=== PATIENT | female | born 1950 | race Caucasian/White ===

== ENCOUNTER → 2016-06-06 | Day surgery (SDC) | payer MEDICARE, OTHER ==
[~2016-06-06] MED LIST: Lactated Ringers 1,000 ML IV SCH; Lidocaine 4% Top Soln 5 ML LTA Syringe ONE; Lidocaine 4% Top Soln 5 ML LTA Syringe TOP ONE; Propofol 200 MG/20 ML SDV IV ONE
[2016-06-06 11:58] VITALS: BP 139/73
--- NOTE | 2016-06-06 12:52 | OR ---
DATE OF OPERATION: 06/06/2016 PREOPERATIVE DIAGNOSIS: EPIGASTRIC PAIN AND GASTROESOPHAGEAL REFLUX DISEASE. POSTOPERATIVE DIAGNOSIS: LARGE HIATAL HERNIA. SURGEON: Daryl Jacome MD PROCEDURE: ESOPHAGOGASTRODUODENOSCOPY WITH JENNIFER. ANESTHESIA: FLAGSETTER due to severe reflux. COMPLICATIONS: None. SPECIMEN: Antral JENNIFER. FINDINGS: 1. Full-length EGD. 2. Moderate to large hiatal hernia without esophagitis. RECOMMENDATIONS: Surgical followup for possible lap Vaishali. INDICATIONS: The patient has been resistant to reflux medications and having a lot of epigastric pain. Izabella Newman sent her for EGD. DESCRIPTION OF PROCEDURE: The patient was prepped and draped, placed in the left lateral decubitus position. A lubricated Olympus gastroscope was inserted and with ease intubated in the esophagus. Esophageal lining was completely benign in its entire course. The Z-line was crisp and sharp around 36 to 37 cm. There was a moderate-sized hiatal hernia present with spontaneous reflux. No distal esophagitis, stricturing, ulceration, or Anna's changes. The scope was advanced into the stomach through the pylorus into the third portion of duodenum. This and the duodenal bulb were completely benign. The scope was brought back into the stomach and retroflexed. The upper fundus and cardia were unremarkable, other than the hernia itself. The entire gastric lining showed no signs of any polyps, mass, ulceration, or peptic ulcer disease. A CLOtest was obtained. Air was then suctioned. Scope removed without complication. VAZQUEZ/KEV /[id number]
== END ==
LOC: CC.SDS 10:18
PROVIDERS: ATTEND Family Medicine
DX: K44.9 Diaphragmatic hernia without obstruction or gangrene (principal); Z88.0 Allergy status to penicillin; Z79.899 Other long term (current) drug therapy; Z90.49 Acquired absence of other specified parts of digestive tract; Z90.710 Acquired absence of both cervix and uterus; Z98.890 Other specified postprocedural states; Z78.9 Other specified health status; Z87.891 Personal history of nicotine dependence
CPT/HCPCS: 43235; 87081; A9270; J2704; J7120; 00740

== ENCOUNTER 2016-06-27 00:30 | Emergency (ER) | payer MEDICARE, OTHER ==
[2016-06-27 00:35] VITALS: BP 153/95
[2016-06-27] MEDS ORDERED: Alum Hydrox/Mag Hydrox/Simeth 30 ML, Lidocaine 2% 15 ML PO ONE ×2 (01:11)
--- NOTE | 2016-06-27 01:11 | EDM.PDOC ---
ED HPI GI/ABDOMINAL - General Chief Complaint: Abdominal Pain Stated Complaint: abdominal pain, heart "erratic" Time Seen by Provider: 06/27/16 00:55 Source of Information: Reports: Patient History Limitations: Reports: No limitations - History of Present Illness INITIAL COMMENTS - FREE TEXT/NARRATIVE: Has been having abdominal pain for several months and did have EGD recently and was told she has large hiatal hernia. Saw Dr. Denise for it last week and he set her up to have UGI with small bowel follow through next week. States that tonight the pain was worse. No nausea or diarrhea with it. Also noted that she had an irregular heart beat at times. Has a harsh congested cough that she states started several days ago. Very congested nasally with stuffed up nose. Cough has been getting worse all evening and when she coughed would cause an increase in pain. No fever with it. Has been able to eat but has not had appetite. When she does eat it causes increase in pain and pressure. Has been drinking some but that cause discomfort also. Did come here from work. Location: other (midepigastric) Associated Symptoms (-Female): Denies: constipation, diarrhea, fever/chills - Related Data Allergies/ADRs: Allergies Allergy/AdvReac Type Severity Reaction Status Date / Time Penicillins Allergy Rash Verified 06/27/16 00:35 Home Meds: Home Meds Levothyroxine Sodium [Levothyroxine Sodium] 112 mcg PO DAILY 12/01/15 [History] Sertraline [Zoloft] 25 mg PO DAILY 12/01/15 [History] traMADol [Ultram] 50 mg PO Q6H PRN 12/07/15 [History] Cyclobenzaprine HCl 10 mg PO TID PRN 06/04/16 [History] Hydrocodone/Acetaminophen [Hydrocodon-Acetaminophn 10-325] 1 tab PO Q6H PRN [History] predniSONE [Prednisone] 5 mg PO DAILY 06/04/16 [History] Past Medical History HEENT History: Reports: Cataract, Impaired vision Cardiovascular History: Reports: Hypertension Gastrointestinal History: Reports: Diverticulosis, GERD, Hiatal hernia, Other ( see below) Other Gastrointestinal History: abdominal hernia 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 OB/BYN History: 8 pregnancyies 6 children Musculoskeletal History: Reports: Arthritis, Back pain, chronic Neurological History: Reports: Headaches, chronic, Migraines Psychiatric History: Reports: Anxiety, Depression Endocrine/Metabolic History: Reports: Hyperthyroidism, Hypothyroidism - Infectious Disease History Infectious Disease History: Reports: Chicken pox - Past Surgical History HEENT Surgical History: Reports: Adenoidectomy, Tonsillectomy Cardiovascular Surgical History: Reports: None GI Surgical History: Reports: Appendectomy, Cholecystectomy Female Surgical History: Reports: Hysterectomy Endocrine Surgical History: Reports: Thyroidectomy Neurological Surgical History: Reports: None Musculoskeletal Surgical History: Reports: Arthroscopic knee Social & Family History - Family History Psychiatric: Reports: Anxiety, Depression Endocrine/Metabolic: Reports: Diabetes, type II Oncologic: Reports: Lung Other Oncologic Family History: mother - Tobacco Use Smoking Status *Q: Current Every Day Smoker Years of Tobacco use: 20 Packs/Tins Daily: 0.5 Used Tobacco, but Quit: Yes Month Tobacco Last Used: 10/2015 Second Hand Smoke Exposure: Yes - Caffeine Use Caffeine Use: Reports: Coffee - Recreational Drug Use Recreational Drug Use: No ED ROS GENERAL - Review of Systems Review Of Systems: See Below Constitutional: Denies: fever, chills HEENT: Reports: Sinus problem Respiratory: Reports: Cough, Sputum. Denies: Shortness of Breath Cardiovascular: Reports: Palpitations. Denies: Chest pain GI/Abdominal: Reports: Abdominal pain, Decreased appetite. Denies: Constipation , Diarrhea, Vomiting : Reports: no symptoms Musculoskeletal: Reports: no symptoms Skin: Reports: no symptoms Neurological: Reports: No Symptoms ED EXAM, GI/ABD - Physical Exam Exam: See Below Exam Limited By: No limitations General Appearance: alert, moderate distress Ears: normal external exam, normal canal, normal TMs Nose: nasal drainage Throat/Mouth: Normal inspection, Normal oropharynx, Normal voice Head: atraumatic, normocephalic, sinus tenderness Neck: normal inspection, supple Respiratory/Chest: no respiratory distress, lungs clear Cardiovascular: regular rate, rhythm, no edema, no murmur GI/Abdominal: normal bowel sounds, soft, tenderness (to the midepigastric area.) . No: guarding, rigidity Extremities: normal inspection, no pedal edema Neurological: alert, oriented Skin Exam: Warm, Dry EKG INTERPRETATION EKG Date: 06/27/16 Rhythm: NSR Course - Vital Signs Last Recorded V/S: Last Vital Signs Temp 98.5 F 06/27/16 00:33 Pulse 92 06/27/16 00:33 Resp 18 06/27/16 00:33 BP 153/95 H 06/27/16 00:33 Pulse Ox 99 06/27/16 00:33 - Orders/Labs/Meds Orders: Active Orders 24 hr Category Date Time Status BASIC METABOLIC PANEL,BMP [CHEM] Stat Lab 06/27/16 00:43 Ordered CBC WITH AUTO DIFF [HEME] Stat Lab 06/27/16 00:43 Ordered UA W/MICROSCOPIC [URIN] Stat Lab 06/27/16 00:42 Ordered EKG 12 Lead [EK] Routine Ther 06/27/16 00:43 Ordered Departure - Departure Time of Disposition: 01:27 Disposition: Home, Self-Care 01 Condition: good Clinical Impression: Hiatal hernia Sinusitis, acute Qualifiers: Sinusitis location: maxillary Recurrence: non-recurrent Qualified Code(s): J01.00 - Acute maxillary sinusitis, unspecified Instructions: Abdominal Pain, Adult, [id number] Forms: ED Department Discharge Additional Instructions: Push fluids as much as tolerates zithromax- take 2 tabs tonight and then 1 daily for 4 additional days Use the pain meds that you have at home to help with the pain Follow up with Dr. Denise Tylenol or advil as needed for temp or mild discomfort - Problem List & Annotations (1) Abdominal pain SNOMED Code(s): 50920398 Code(s): R10.9 - UNSPECIFIED ABDOMINAL PAIN Status: Acute Priority: High Current Visit: No Qualifiers: Abdominal location: epigastric Qualified Code(s): R10.13 - Epigastric pain (2) Hiatal hernia SNOMED Code(s): 54558922 Code(s): K44.9 - DIAPHRAGMATIC HERNIA WITHOUT OBSTRUCTION OR GANGRENE Status: Acute Priority: High Current Visit: Yes (3) Sinusitis, acute SNOMED Code(s): 37601848 Code(s): J01.90 - ACUTE SINUSITIS, UNSPECIFIED Status: Acute Priority: High Current Visit: Yes Qualifiers: Sinusitis location: maxillary Recurrence: non-recurrent Qualified Code(s) : J01.00 - Acute maxillary sinusitis, unspecified - Problem List Review Problem List Initiated/Reviewed/Updated: Yes - My Orders Last 24 Hours: My Active Orders 06/27/16 00:42 UA W/MICROSCOPIC [URIN] Stat 06/27/16 00:43 BASIC METABOLIC PANEL,BMP [CHEM] Stat CBC WITH AUTO DIFF [HEME] Stat EKG 12 Lead [EK] Routine - Assessment/Plan Last 24 Hours: My Active Orders 06/27/16 00:42 UA W/MICROSCOPIC [URIN] Stat 06/27/16 00:43 BASIC METABOLIC PANEL,BMP [CHEM] Stat CBC WITH AUTO DIFF [HEME] Stat EKG 12 Lead [EK] Routine
[2016-06-27 01:18] LABS: CHLORIDE,CL 102 mEq/L (98-106); SODIUM,NA 140 mEq/L (136-145)
[2016-06-27] MEDS ORDERED: Take Home: Azithromycin 250 MG, 2 Tab Pack PO ONE (01:29)
[2016-06-27] MEDS ORDERED: Azithromycin 250 MG Tab PO ONE (11:39)
== END 2016-06-27 01:40 | disposition home or self-care (01) ==
LOC: CC.ED 00:30
DX: K44.9 Diaphragmatic hernia without obstruction or gangrene (principal); J01.00 Acute maxillary sinusitis, unspecified; I10 Essential (primary) hypertension; K21.9 Gastro-esophageal reflux disease without esophagitis; M19.90 Unspecified osteoarthritis, unspecified site; F41.9 Anxiety disorder, unspecified; F32.9 Major depressive disorder, single episode, unspecified; E05.90 Thyrotoxicosis, unspecified without thyrotoxic crisis or storm; E03.9 Hypothyroidism, unspecified; F17.210 Nicotine dependence, cigarettes, uncomplicated; Z88.0 Allergy status to penicillin; Z79.899 Other long term (current) drug therapy; Z79.52 Long term (current) use of systemic steroids; Z98.890 Other specified postprocedural states; Z90.49 Acquired absence of other specified parts of digestive tract; Z90.710 Acquired absence of both cervix and uterus
CPT/HCPCS: 36415; 80048; 81001; 85025; 93005; 93010; 99284; A9270

== ENCOUNTER 2016-09-02 21:44 | Inpatient (IN) | payer MEDICARE, OTHER ==
[2016-09-02] MEDS ORDERED: Lactated Ringers 1,000 ML IV ONE (21:55)
[2016-09-02] MEDS ORDERED: fentaNYL 100 MCG/2 ML SDV IVPUSH ONE (21:56)
[2016-09-02 22:30] LABS: CHLORIDE,CL 105 mEq/L (98-106); SODIUM,NA 140 mEq/L (136-145)
[2016-09-02] MEDS ORDERED: Non-Formulary Medication 1 Each (Hydrocodone/Acetaminophen [Hydrocodon-Acetaminophn 10-325 PO PRN (23:04)
[2016-09-02] MEDS ORDERED: traMADol 50 MG Tab PO PRN (23:04)
[2016-09-02] MEDS ORDERED: Cyclobenzaprine 10 MG Tab PO PRN (23:04)
[2016-09-02] MEDS ORDERED: fentaNYL 100 MCG/2 ML SDV IVPUSH PRN (23:06)
--- NOTE | 2016-09-02 23:11 | EDM.PDOC ---
ED HPI GENERAL MEDICAL PROBLEM - General Chief Complaint: Abdominal Pain Stated Complaint: "HAVING RIGHT ABDOMINAL PAIN" Time Seen by Provider: 09/02/16 22:39 Source of Information: Reports: Patient History Limitations: Reports: No Limitations - History of Present Illness INITIAL COMMENTS - FREE TEXT/NARRATIVE: Altagracia is a 66 yo female who presents to the ER via family with concerns of severe right lower quadrant abdominal pain. She states the pain started around 1900hrs this evening and hasn't let up. She has been dealing with abdominal pain for the last month or so after having a lap april fundoplication done in [place] by Dr. Denise. She states that pain is different than her typical pain. She states she did have some diarrhea up until a few days ago. Denies any blood in her stool. States she has been urinating fine without any increase in frequency or urgency. Denies any new onset of acute back pain. States she suffers from chronic pain in her back. She has felt feverish today as well. Appetite is decreased. nauseated without any vomiting. Onset: Today, Sudden Duration: Constant Location: Reports: Abdomen (RLQ) Quality: Reports: Sharp Severity: Moderate Improves with: Reports: None Worsens with: Reports: Movement Associated Symptoms: Reports: Nausea/Vomiting Right Lower Abdomen Pain Score (Numeric/FACES): 10 - Related Data Allergies Allergy/AdvReac Type Severity Reaction Status Date / Time Penicillins Allergy Rash Verified 09/02/16 22:40 Home Meds: Home Meds Levothyroxine Sodium [Levothyroxine Sodium] 112 mcg PO DAILY 12/01/15 [History] Sertraline [Zoloft] 25 mg PO DAILY 12/01/15 [History] traMADol [Ultram] 50 mg PO Q6H PRN 12/07/15 [History] Cyclobenzaprine HCl 10 mg PO TID PRN 06/04/16 [History] Hydrocodone/Acetaminophen [Hydrocodon-Acetaminophn 10-325] 1 tab PO Q6H PRN [History] predniSONE [Prednisone] 5 mg PO DAILY 06/04/16 [History] Past Medical History HEENT History: Reports: Cataract, Impaired Vision Cardiovascular History: Reports: Hypertension Gastrointestinal History: Reports: Diverticulosis, GERD, Hiatal Hernia, Other ( See Below) Other Gastrointestinal History: SURGERY ON AUG 07 2016. 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/BYN History: 8 pregnancyies 6 children Musculoskeletal History: Reports: Arthritis, Back Pain, Chronic Neurological History: Reports: Headaches, Chronic, Migraines Psychiatric History: Reports: Anxiety, Depression Endocrine/Metabolic History: Reports: Hyperthyroidism, Hypothyroidism - Infectious Disease History Infectious Disease History: Reports: Chicken Pox - Past Surgical History Cardiovascular Surgical History: Reports: None GI Surgical History: Reports: Hernia, Inguinal Female Surgical History: Reports: Hysterectomy Endocrine Surgical History: Reports: Thyroidectomy Musculoskeletal Surgical History: Reports: Arthroscopic Knee Social & Family History - Family History Psychiatric: Reports: Anxiety, Depression Endocrine/Metabolic: Reports: Diabetes, type II Oncologic: Reports: Lung Other Oncologic Family History: mother - Tobacco Use Smoking Status *Q: Current Every Day Smoker Years of Tobacco use: 30 Packs/Tins Daily: 1 Used Tobacco, but Quit: Yes Month Tobacco Last Used: 10/2015 Second Hand Smoke Exposure: Yes - Caffeine Use Caffeine Use: Reports: Coffee - Recreational Drug Use Recreational Drug Use: No ED ROS GENERAL - Review of Systems Review Of Systems: See Below Constitutional: Reports: Fever, Decreased Appetite HEENT: Reports: No Symptoms Respiratory: Reports: No Symptoms Cardiovascular: Reports: No Symptoms GI/Abdominal: Reports: Abdominal Pain, Diarrhea, Flatus, Nausea. Denies: Bloody Stool, Hematochezia, Melena, Vomiting : Reports: No Symptoms Musculoskeletal: Reports: Back Pain Neurological: Reports: No Symptoms Psychiatric: Reports: No Symptoms ED EXAM, GI/ABD - Physical Exam Exam: See Below Exam Limited By: No Limitations General Appearance: Alert, Mild Distress Ears: Normal External Exam, Normal Canal, Hearing Grossly Normal, Normal TMs Nose: Normal Inspection, Normal Mucosa, No Blood Throat/Mouth: Normal Inspection, Normal Lips, Normal Teeth, Normal Gums, Normal Oropharynx, No Airway Compromise Head: Atraumatic, Normocephalic Neck: Normal Inspection, Supple, Non-Tender, Full Range of Motion Respiratory/Chest: No Respiratory Distress, Lungs Clear, Normal Breath Sounds, No Accessory Muscle Use Cardiovascular: Regular Rate, Rhythm, No Murmur GI/Abdominal: Normal Bowel Sounds, Soft, No Organomegaly, Tenderness (RLQ). No : No Mass, Hernia Back Exam: No: CVA Tenderness (L), CVA Tenderness (R) Extremities: Normal Inspection, No Pedal Edema, Normal Capillary Refill Neurological: Alert, Oriented Psychiatric: Normal Affect, Normal Mood Skin Exam: Warm, Dry, Intact, Normal Color Course - Vital Signs Text/Narrative:: Radiology report received by radiologist at [place]. No diverticulitis noted. Radiologist felt there may be a possible ileus. Last Recorded V/S: Last Vital Signs Temp 100.4 F 09/02/16 22:20 Pulse 110 H 09/02/16 22:20 Resp 20 09/02/16 22:20 BP 136/94 H 09/02/16 22:20 Pulse Ox 96 09/02/16 22:20 - Orders/Labs/Meds Orders: Active Orders 24 hr Category Date Time Status Patient Status Manage Transfer [TRANSFER] Routine ADT 09/02/16 22:57 Ordered Abdomen Pelvis w Cont [CT] Stat Exams 09/02/16 22:16 Taken CULTURE BLOOD [BC] Stat Lab 09/02/16 22:15 Received CULTURE BLOOD [BC] Stat Lab 09/02/16 22:20 Received Cyclobenzaprine [Flexeril] Med 09/02/16 23:04 Active 10 mg PO TID PRN Hydrocodone/Acetaminophen [Hydrocodon-Acetaminophn 10- Med 09/02/16 23:04 Active 325] 1 tab PO Q6H PRN Levothyroxine Med 09/03/16 08:00 Active 112 mcg PO DAILY Sertraline [Zoloft] Med 09/03/16 08:00 Active 25 mg PO DAILY fentaNYL [Sublimaze] Med 09/02/16 23:06 Active 50 mcg IVPUSH Q6H PRN traMADol [Ultram] Med 09/02/16 23:04 Active 50 mg PO Q6H PRN Blood Culture x2 Reflex Set [OM.PC] Stat Oth 09/02/16 22:29 Ordered Resuscitation Status Routine Resus Stat 09/02/16 22:58 Ordered Medication Orders Cyclobenzaprine HCl (Flexeril) 10 mg PO TID PRN PRN Reason: muscle relaxer Fentanyl (Sublimaze) 50 mcg IVPUSH Q6H PRN PRN Reason: Pain Levothyroxine Sodium (Levothyroxine) 112 mcg PO DAILY ADENIKE Non-Formulary Medication (Hydrocodone/Acetaminophen [Hydrocodon-Acetaminophn 10- 325]) 1 tab PO Q6H PRN PRN Reason: Pain Sertraline HCl (Zoloft) 25 mg PO DAILY ADENIKE Tramadol HCl (Ultram) 50 mg PO Q6H PRN PRN Reason: Pain Labs: Laboratory Tests 09/02/16 09/02/16 09/02/16 Range/Units 22:00 22:00 22:09 WBC 9.0 (5.0-10.0) 10^3/uL RBC 4.50 (4.00-5.50) 10^6/uL Hgb 13.7 (12.0-16.0) g/dL Hct 40.0 (37.0-47.0) % MCV 88.9 (82.0-94.0) fL MCH 30.4 (27.0-32.0) pg MCHC 34.3 (33.0-38.0) g/dL RDW Coeff of Ezra 13.1 (11.0-15.0) % Plt Count 279 (150-400) 10^3/uL Neut % (Auto) 52.8 (35-85) % Lymph % (Auto) 30.8 (10-55) % Harris % (Auto) 11.2 (0-16) % Eos % (Auto) 4.9 (0-5) % Baso % (Auto) 0.3 (0-3) % Neut # (Auto) 4.72 (1.80-7.00) 10^3/uL Lymph # (Auto) 2.76 (1.00-4.80) 10^3/uL Harris # (Auto) 1.00 H (0.00-0.80) 10^3/uL Eos # (Auto) 0.44 (0.00-0.45) 10^3/uL Baso # (Auto) 0.03 10^3/uL Sodium 140 (136-145) mEq/L Potassium 3.6 (3.5-5.0) mEq/L Chloride 105 (98-106) mEq/L Carbon Dioxide 27 (21-32) mmol/L BUN 15 (7-18) mg/dL Creatinine 0.8 (0.6-1.0) mg/dL Est Cr Clr Drug Dosing TNP Estimated GFR (MDRD) > 60 (>=60) mL/min Glucose 117 H (75-99) mg/dL Calcium 8.8 (8.4-10.1) mg/dL Total Bilirubin 0.4 (0.0-1.0) mg/dL AST 22 (15-37) U/L ALT 35 (12-78) U/L Alkaline Phosphatase 113 (46-116) U/L C-Reactive Protein < 0.2 L (0.2-0.8) mg/dL Total Protein 7.8 (6.4-8.2) g/dL Albumin 3.6 (3.4-5.0) g/dL Amylase 51 (25-115) U/L Urine Color Yellow (YELLOW) Urine Appearance Clear (CLEAR) Urine pH 5.5 (4.5-8.0) Ur Specific [place] 1.022 H (1.003-1.020) Urine Protein Negative (NEGATIVE) mg/dL Urine Glucose (UA) Negative (NEGATIVE) mg/dL Urine Ketones Negative (NEGATIVE) mg/dL Urine Occult Blood Large H (NEGATIVE) Urine Nitrite Negative (NEGATIVE) Urine Bilirubin Negative (NEGATIVE) Urine Urobilinogen 0.2 (0.2-1.0) EU/dL Ur Leukocyte Esterase Negative (NEGATIVE) Urine RBC 40-50 H (0-5) /HPF Urine WBC Not seen (0-5) /HPF Ur Epithelial Cells Few H (NOT SEEN) /HPF Urine Mucus Few H (NOT SEEN) /HPF Meds: Medications Generic Name Dose Route Start Last Admin Trade Name Freq PRN Reason Stop Dose Admin Cyclobenzaprine HCl 10 mg 09/02/16 23:04 Flexeril PO TID PRN muscle relaxer Fentanyl 50 mcg 09/02/16 23:06 Sublimaze IVPUSH Q6H PRN Pain Levothyroxine Sodium 112 mcg 09/03/16 08:00 Levothyroxine PO DAILY ADENIKE Non-Formulary Medication 1 tab 09/02/16 23:04 Hydrocodone/Acetaminophen [Hydrocodon-Acetaminophn 10-325] PO Q6H PRN Pain Sertraline HCl 25 mg 09/03/16 08:00 Zoloft PO DAILY ADENIKE Tramadol HCl 50 mg 09/02/16 23:04 Ultram PO Q6H PRN Pain Discontinued Medications Generic Name Dose Route Start Last Admin Trade Name Freq PRN Reason Stop Dose Admin Fentanyl 50 mcg 09/02/16 21:56 09/02/16 22:30 Sublimaze IVPUSH 09/02/16 21:57 50 mcg ONETIME ONE Administration Lactated Ringer's 1,000 mls @ 999 mls/hr 09/02/16 21:55 09/02/16 22:33 Ringers, Lactated IV 09/02/16 22:55 999 mls/hr .BOLUS ONE Administration Departure - Departure Time of Disposition: 23:30 Disposition: Refer to Observation Condition: Good Clinical Impression: Ileus, unspecified Abdominal pain Qualifiers: Abdominal location: epigastric Qualified Code(s): R10.13 - Epigastric pain - Discharge Information Forms: ED Department Discharge - Problem List & Annotations (1) Abdominal pain SNOMED Code(s): 68070837 Code(s): R10.9 - UNSPECIFIED ABDOMINAL PAIN Status: Acute Priority: High Qualifiers: Abdominal location: epigastric Qualified Code(s): R10.13 - Epigastric pain (2) Ileus, unspecified SNOMED Code(s): 78596538 Code(s): K56.7 - ILEUS, UNSPECIFIED Status: Acute - Problem List Review Problem List Initiated/Reviewed/Updated: Yes - My Orders Last 24 Hours: My Active Orders 09/02/16 22:15 CULTURE BLOOD [BC] Stat 09/02/16 22:16 Abdomen Pelvis w Cont [CT] Stat 09/02/16 22:20 CULTURE BLOOD [BC] Stat 09/02/16 22:29 Blood Culture x2 Reflex Set [OM.PC] Stat 09/02/16 22:57 Patient Status Manage Transfer [TRANSFER] Routine 09/02/16 22:58 Resuscitation Status Routine 09/02/16 23:04 Cyclobenzaprine [Flexeril] 10 mg PO TID PRN Hydrocodone/Acetaminophen [Hydrocodon-Acetaminophn 10-325] 1 tab PO Q6H PRN traMADol [Ultram] 50 mg PO Q6H PRN 09/02/16 23:06 fentaNYL [Sublimaze] 50 mcg IVPUSH Q6H PRN 09/03/16 08:00 Levothyroxine 112 mcg PO DAILY Sertraline [Zoloft] 25 mg PO DAILY - Assessment/Plan Admission H&P: Please use this note as an admission H&P Last 24 Hours: My Active Orders 09/02/16 22:15 CULTURE BLOOD [BC] Stat 09/02/16 22:16 Abdomen Pelvis w Cont [CT] Stat 09/02/16 22:20 CULTURE BLOOD [BC] Stat 09/02/16 22:29 Blood Culture x2 Reflex Set [OM.PC] Stat 09/02/16 22:57 Patient Status Manage Transfer [TRANSFER] Routine 09/02/16 22:58 Resuscitation Status Routine 09/02/16 23:04 Cyclobenzaprine [Flexeril] 10 mg PO TID PRN Hydrocodone/Acetaminophen [Hydrocodon-Acetaminophn 10-325] 1 tab PO Q6H PRN traMADol [Ultram] 50 mg PO Q6H PRN 09/02/16 23:06 fentaNYL [Sublimaze] 50 mcg IVPUSH Q6H PRN 09/03/16 08:00 Levothyroxine 112 mcg PO DAILY Sertraline [Zoloft] 25 mg PO DAILY Plan: Consulted with Dr. Jacome in regards to Altagracia's condition. Elected to proceed with admission for further evaluation and to rule out diverticulitis and nephrolithiasis. After admission, radiologist did feel a possible ileus forming. Will push fluids tonight and refrain from any antibiotic therapy. She will remain NPO thru the night. Family is in understanding and Altagracia was transferred to floor in satisfactory condition.
[2016-09-03] MEDS ORDERED: Ketorolac 30 MG/ML SDV IVPUSH PRN (00:22)
[2016-09-03] MEDS ORDERED: Magnesium Hydroxide 400 MG/5 ML Susp 30 ML Cup PO PRN (00:23)
[2016-09-03] MEDS ORDERED: Docusate Sodium 100 MG Cap PO PRN (00:23)
[2016-09-03] MEDS ORDERED: Ketorolac 30 MG/ML SDV IM PRN (00:23)
[2016-09-03] MEDS ORDERED: Enoxaparin 30 MG/0.3 ML Syringe SUBCUT SCH (00:23)
[2016-09-03] MEDS ORDERED: Acetaminophen 325 MG Tab PO PRN (00:23)
[2016-09-03] MEDS: Ondansetron 4 MG/2 ML SDV IV PRN ×3 (01:35→19:54)
[2016-09-03] MEDS: Lactated Ringers 1,000 ML IV SCH ×4 (01:41→18:13)
[2016-09-03 07:43] LABS: CHLORIDE,CL 108 mEq/L (98-106); SODIUM,NA 142 mEq/L (136-145)
[2016-09-03] MEDS ORDERED: Acetaminophen/HYDROcodone 325-5 MG Tab PO PRN (07:46)
--- NOTE | 2016-09-03 09:02 | PCM.PN ---
- General Info Date of Service: 09/03/16 Admission Dx/Problem (Free Text): Ileus Abdominal Pain Functional Status: Reports: pain controlled. Denies: tolerating diet, ambulating - Review of Systems General: Denies: Fever, Weakness HEENT: Reports: no symptoms Pulmonary: Denies: shortness of breath, cough, wheezing Cardiovascular: Denies: Chest Pain, Edema, Lightheadedness Gastrointestinal: Reports: Abdominal pain, Diarrhea. Denies: Nausea, Vomiting Genitourinary: Reports: no symptoms Musculoskeletal: Reports: no symptoms Skin: Reports: no symptoms Neurological: Reports: No Symptoms - Patient Data Vitals - most recent: Last Vital Signs Temp 97.3 F 09/03/16 07:25 Pulse 69 09/03/16 07:25 Resp 16 09/03/16 07:25 BP 116/67 09/03/16 07:25 Pulse Ox 94 L 09/03/16 07:25 Weight - most recent: 150 lb 12.8 oz I&O - last 24 hours: Intake & Output 09/02/16 09/03/16 09/03/16 22:59 06:59 14:59 Output Total 200 Balance -200 Lab Results last 24 hrs: Laboratory Results - last 24 hr 09/03/16 09/03/16 Range/Units 07:15 07:21 WBC 6.2 (5.0-10.0) 10^3/uL RBC 4.02 (4.00-5.50) 10^6/uL Hgb 12.1 (12.0-16.0) g/dL Hct 36.4 L (37.0-47.0) % MCV 90.5 (82.0-94.0) fL MCH 30.1 (27.0-32.0) pg MCHC 33.2 (33.0-38.0) g/dL RDW Coeff of Ezra 13.0 (11.0-15.0) % Plt Count 217 (150-400) 10^3/uL Neut % (Auto) 43.6 (35-85) % Lymph % (Auto) 35.9 (10-55) % [place] % (Auto) 11.7 (0-16) % Eos % (Auto) 8.3 H (0-5) % Baso % (Auto) 0.5 (0-3) % Neut # (Auto) 2.70 (1.80-7.00) 10^3/uL Lymph # (Auto) 2.22 (1.00-4.80) 10^3/uL [place] # (Auto) 0.72 (0.00-0.80) 10^3/uL Eos # (Auto) 0.51 H (0.00-0.45) 10^3/uL Baso # (Auto) 0.03 10^3/uL Sodium 142 (136-145) mEq/L Potassium 3.5 (3.5-5.0) mEq/L Chloride 108 H (98-106) mEq/L Carbon Dioxide 28 (21-32) mmol/L BUN 10 (7-18) mg/dL Creatinine 0.7 (0.6-1.0) mg/dL Est Cr Clr Drug Dosing 57.55 mL/min Estimated GFR (MDRD) > 60 (>=60) mL/min Glucose 94 (75-99) mg/dL Calcium 8.1 L (8.4-10.1) mg/dL C-Reactive Protein 0.7 (0.2-0.8) mg/dL Med Orders - Current: Current Medications Acetaminophen (Tylenol) 650 mg PO Q4H PRN PRN Reason: Pain (Mild 1-3)/fever Hydrocodone Bitart/Acetaminophen ([place] 325-5 Mg) 2 tab PO Q6H PRN PRN Reason: Pain Cyclobenzaprine HCl (Flexeril) 10 mg PO TID PRN PRN Reason: muscle relaxer Docusate Sodium (Colace) 100 mg PO BID PRN PRN Reason: Constipation Enoxaparin Sodium (Lovenox) 30 mg SUBCUT Q24H [facility] Fentanyl (Sublimaze) 50 mcg IVPUSH Q6H PRN PRN Reason: Pain Lactated Ringer's (Ringers, Lactated) 1,000 mls @ 125 mls/hr IV ASDIRECTED [facility] Last Admin: 09/03/16 01:41 Dose: 125 mls/hr Ketorolac Tromethamine (Toradol) 15 mg IVPUSH Q6H PRN PRN Reason: Pain Stop: 09/08/16 00:22 Last Admin: 09/03/16 00:35 Dose: 15 mg Levothyroxine Sodium (Levothyroxine) 112 mcg PO DAILY [facility] Magnesium Hydroxide (Milk Of Magnesia) 30 ml PO Q12H PRN PRN Reason: Constipation Ondansetron HCl (Zofran) 4 mg IV Q4H PRN PRN Reason: Nausea/Vomiting Last Admin: 09/03/16 01:35 Dose: 4 mg Sertraline HCl (Zoloft) 25 mg PO DAILY [facility] Tramadol HCl (Ultram) 50 mg PO Q6H PRN PRN Reason: Pain Discontinued Medications Enoxaparin Sodium (Lovenox) 30 mg SUBCUT Q24H [facility] Last Admin: 09/03/16 01:30 Dose: 30 mg Fentanyl (Sublimaze) 50 mcg IVPUSH ONETIME ONE Stop: 09/02/16 21:57 Last Admin: 09/02/16 22:30 Dose: 50 mcg Lactated Ringer's (Ringers, Lactated) 1,000 mls @ 999 mls/hr IV .BOLUS ONE Stop: 09/02/16 22:55 Last Admin: 09/02/16 22:33 Dose: 999 mls/hr Ketorolac Tromethamine (Toradol) 30 mg IM Q6H PRN PRN Reason: Pain (moderate 4-6) Non-Formulary Medication (Hydrocodone/Acetaminophen [Hydrocodon-Acetaminophn 10- 325]) 1 tab PO Q6H PRN PRN Reason: Pain - Exam General: alert, oriented HEENT: Mucous membr. moist/pink Neck: supple Lungs: Clear to auscultation, Normal respiratory effort Cardiovascular: Regular Rate, Regular Rhythm Abdomen: soft, tenderness (RLQ), abnormal bowel sounds (hypoactive). No: distension Extremities: no edema, no cyanosis Skin: warm, dry Neurological: no new focal deficit Psy/Mental Status: alert, normal affect, normal mood - Problem List & Annotations (1) Abdominal pain SNOMED Code(s): 50107657 Code(s): R10.9 - UNSPECIFIED ABDOMINAL PAIN Status: Acute Priority: High Current Visit: Yes Qualifiers: Abdominal location: epigastric Qualified Code(s): R10.13 - Epigastric pain (2) Ileus, unspecified SNOMED Code(s): 33952070 Code(s): K56.7 - ILEUS, UNSPECIFIED Status: Acute Priority: High Current Visit: Yes - Problem List Review Problem List Initiated/Reviewed/Updated: Yes - My Orders Last 24 Hours: My Active Orders 09/03/16 08:17 Ambulate [RC] ASDIRECTED 09/03/16 Lunch Clear Liquid Diet [DIET] - Assessment Assessment:: Ileus Abdominal Pain - Plan Plan:: Patient admits she is feeling somewhat better this am. Less pain. Passing minimal gas. Bowel sounds hypoactive. Abdomen is soft, tender with palpation to RLQ yet but admits is better. No guarding. Has been NPO since admit, getting IV fluids. Labs essentially negative. Will start clear liquids. Encourage her to ambulate. Follow up later today.
[2016-09-03] MEDS: Levothyroxine 112 MCG Tab PO SCH (09:35)
[2016-09-03] MEDS: Sertraline 25 MG Tab PO SCH (09:35)
[2016-09-03] MEDS: Enoxaparin 30 MG/0.3 ML Syringe SUBCUT SCH (19:51)
[2016-09-04] MEDS: Lactated Ringers 1,000 ML IV SCH ×3 (02:31→18:43)
[2016-09-04] MEDS: Levothyroxine 112 MCG Tab PO SCH (07:30)
[2016-09-04] MEDS: Sertraline 25 MG Tab PO SCH (07:31)
[2016-09-04] MEDS: Ondansetron 4 MG/2 ML SDV IV PRN (10:50)
--- NOTE | 2016-09-04 17:01 | PCM.PN ---
- General Info Date of Service: 09/04/16 Admission Dx/Problem (Free Text): Ileus Abdominal Pain Functional Status: Reports: pain controlled, tolerating diet, ambulating - Review of Systems General: Denies: Fever, Weakness, Fatigue, Malaise HEENT: Reports: no symptoms Pulmonary: Denies: shortness of breath, cough, wheezing Cardiovascular: Denies: Chest Pain, Edema, Lightheadedness Gastrointestinal: Reports: Abdominal pain (soreness in RLQ), Diarrhea. Denies: Nausea, Vomiting Genitourinary: Reports: no symptoms Musculoskeletal: Reports: no symptoms Skin: Reports: no symptoms Neurological: Reports: No Symptoms Psychiatric: Reports: no symptoms - Patient Data Vitals - most recent: Last Vital Signs Temp 99.2 F 09/04/16 16:00 Pulse 61 09/04/16 16:00 Resp 19 09/04/16 16:00 BP 125/73 09/04/16 16:00 Pulse Ox 95 09/04/16 16:00 Weight - most recent: 150 lb 12.8 oz I&O - last 24 hours: Intake & Output 09/04/16 09/04/16 09/04/16 06:59 14:59 22:59 Intake Total 1800 Output Total 1600 Balance 200 Marquez Results last 24 hrs: Microbiology 09/04/16 10:00 Stool for WBCs - Final Stool / Feces - Stool, Liquid NO WBC SEEN 09/04/16 10:00 C. difficile DNA Amplification - Final Stool / Feces - Stool, Liquid NEGATIVE CDIFF BY DNA Med Orders - Current: Current Medications Acetaminophen (Tylenol) 650 mg PO Q4H PRN PRN Reason: Pain (Mild 1-3)/fever Hydrocodone Bitart/Acetaminophen ([place] 325-5 Mg) 2 tab PO Q6H PRN PRN Reason: Pain Cyclobenzaprine HCl (Flexeril) 10 mg PO TID PRN PRN Reason: muscle relaxer Docusate Sodium (Colace) 100 mg PO BID PRN PRN Reason: Constipation Enoxaparin Sodium (Lovenox) 30 mg SUBCUT Q24H [facility] Last Admin: 09/03/16 19:51 Dose: 30 mg Fentanyl (Sublimaze) 50 mcg IVPUSH Q6H PRN PRN Reason: Pain Lactated Ringer's (Ringers, Lactated) 1,000 mls @ 125 mls/hr IV ASDIRECTED [facility] Last Admin: 09/04/16 10:47 Dose: 125 mls/hr Ketorolac Tromethamine (Toradol) 15 mg IVPUSH Q6H PRN PRN Reason: Pain Stop: 09/08/16 00:22 Last Admin: 09/03/16 00:35 Dose: 15 mg Levothyroxine Sodium (Levothyroxine) 112 mcg PO DAILY [facility] Last Admin: 09/04/16 07:30 Dose: 112 mcg Magnesium Hydroxide (Milk Of Magnesia) 30 ml PO Q12H PRN PRN Reason: Constipation Ondansetron HCl (Zofran) 4 mg IV Q4H PRN PRN Reason: Nausea/Vomiting Last Admin: 09/04/16 10:50 Dose: 4 mg Sertraline HCl (Zoloft) 25 mg PO DAILY [facility] Last Admin: 09/04/16 07:31 Dose: Not Given Tramadol HCl (Ultram) 50 mg PO Q6H PRN PRN Reason: Pain Discontinued Medications Enoxaparin Sodium (Lovenox) 30 mg SUBCUT Q24H [facility] Last Admin: 09/03/16 01:30 Dose: 30 mg Fentanyl (Sublimaze) 50 mcg IVPUSH ONETIME ONE Stop: 09/02/16 21:57 Last Admin: 09/02/16 22:30 Dose: 50 mcg Lactated Ringer's (Ringers, Lactated) 1,000 mls @ 999 mls/hr IV .BOLUS ONE Stop: 09/02/16 22:55 Last Admin: 09/02/16 22:33 Dose: 999 mls/hr Ketorolac Tromethamine (Toradol) 30 mg IM Q6H PRN PRN Reason: Pain (moderate 4-6) Non-Formulary Medication (Hydrocodone/Acetaminophen [Hydrocodon-Acetaminophn 10- 325]) 1 tab PO Q6H PRN PRN Reason: Pain - Exam General: alert, oriented HEENT: Mucous membr. moist/pink Neck: supple Lungs: Clear to auscultation, Normal respiratory effort Cardiovascular: Regular Rate, Regular Rhythm Abdomen: bowel sounds present, soft, tenderness (mild tenderness in RLQ) Extremities: no edema Skin: warm, dry Neurological: no new focal deficit - Problem List & Annotations (1) Abdominal pain SNOMED Code(s): 95945665 Code(s): R10.9 - UNSPECIFIED ABDOMINAL PAIN Status: Acute Priority: High Current Visit: Yes Qualifiers: Abdominal location: epigastric Qualified Code(s): R10.13 - Epigastric pain (2) Ileus, unspecified SNOMED Code(s): 69437194 Code(s): K56.7 - ILEUS, UNSPECIFIED Status: Acute Priority: High Current Visit: Yes - Problem List Review Problem List Initiated/Reviewed/Updated: Yes - My Orders Last 24 Hours: My Active Orders 09/04/16 10:00 STOOL CULTURE [MREF] Stat - Assessment Assessment:: Ileus Abdominal Pain Diarrhea - Plan Plan:: Patient admits she is feeling somewhat better this am. Less pain. Passing minimal gas. Bowel sounds hypoactive. Abdomen is soft, tender with palpation to RLQ yet but admits is better. No guarding. Has been NPO since admit, getting IV fluids. Labs essentially negative. Will start clear liquids. Encourage her to ambulate. Follow up later today. 09-04-2016 Patient has been walking frequently in the halls. Is passing some flatus but admits to increasing diarrhea. Mild abdominal soreness, cramping prior to stools. No fevers. Tolerating liquids well. Labs have been normal Flat and upright of the abdomen obtained this am. Mild air fluids levels noted. Will advance diet to regular. Collect stool studies. [facility] until results obtained.
[2016-09-04] MEDS: Enoxaparin 30 MG/0.3 ML Syringe SUBCUT SCH (20:13)
[2016-09-05] MEDS: Lactated Ringers 1,000 ML IV SCH (03:38)
[2016-09-05] MEDS: Sertraline 25 MG Tab PO SCH (07:39)
[2016-09-05] MEDS: Levothyroxine 112 MCG Tab PO SCH (07:39)
[2016-09-05 07:54] VITALS: BP 113/64
--- NOTE | 2016-09-05 09:09 | PCM.DCSUM1 ---
Discharge Summary - Hospital Course Free Text/Narrative:: Patient admitted per Larry Del Castillo with severe RLQ pain. Patient had a Vaishali Fundoplication done by Dr. Denise on August 07. She had been dealing with pain but presentation pain was different. Had not been taking many pain pills as she states they make her nauseated. Had been experiencing some diarrhea but not on day of admit. Labs essentially negative, CT showed an ileus. Admitted for IV fluids. Kept NPO. - Discharge Data Discharge Date: 09/05/16 Discharge Disposition: Home, Self-Care 01 Condition: Good - Discharge Diagnosis/Problem(s) (1) Abdominal pain SNOMED Code(s): 22408982 ICD Code: R10.9 - UNSPECIFIED ABDOMINAL PAIN Status: Acute Priority: High Current Visit: Yes Qualifiers: Abdominal location: epigastric Qualified Code(s): R10.13 - Epigastric pain (2) Ileus, unspecified SNOMED Code(s): 46219820 ICD Code: K56.7 - ILEUS, UNSPECIFIED Status: Resolved Priority: High Current Visit: Yes - Patient Summary/Data Complications: none Hospital Course: Patient admitted for abdominal pain and ileus s/p Lap Vaishali. Pain she was experiencing however was different than her surgical pain. She has had much improvement of her pain over course of hospital stay. Now admits area to the RLQ is only sore. She has tolerated increase in her diet to regular without vomiting. Not taking pain meds. She has been ambulating well, tolerating. Passing flatus now. She has had much diarrhea during her stay, stool studies including c diff have been negative. She has remained afebrile. Abdomen soft, no guarding by discharge. Labs on admit showed WBC of 9.0, now 6.2. CRP has remained negative. BUN and creatinine within normal limits. Will discharge home to follow up with Dr. Denise next week as previously scheduled. - Patient Instructions Diet: Usual Diet as Tolerated Activity: As Tolerated - Discharge Plan Home Medications: Home Meds Levothyroxine Sodium 112 mcg PO DAILY 12/01/15 [History] Sertraline [Zoloft] 25 mg PO DAILY 12/01/15 [History] traMADol [Ultram] 50 mg PO Q6H PRN 12/07/15 [History] Cyclobenzaprine HCl 10 mg PO TID PRN 06/04/16 [History] Hydrocodone/Acetaminophen [Hydrocodon-Acetaminophn 10-325] 1 tab PO Q6H PRN [History] predniSONE [Prednisone] 5 mg PO DAILY 06/04/16 [History] Forms: ED Department Discharge Referrals: Diann Denise MD [Ordering Only Provider] - (Dr. Denise as scheduled) Lilliana Whyte PA [ED Midlevel Provider] - (See Telma on September 17 for follow up) - General Info Date of Service: 09/05/16 Admission Dx/Problem (Free Text: Ileus Abdominal Pain Functional Status: Reports: pain controlled, tolerating diet, ambulating - Review of Systems General: Denies: Fever, Weakness, Fatigue HEENT: Reports: no symptoms Pulmonary: Denies: shortness of breath, cough Cardiovascular: Denies: Chest Pain, Edema, Lightheadedness Gastrointestinal: Reports: Diarrhea. Denies: Abdominal pain, Nausea, Vomiting Genitourinary: Reports: no symptoms Musculoskeletal: Reports: no symptoms Skin: Reports: no symptoms Neurological: Reports: No Symptoms - Patient Data Vitals - Most Recent: Last Vital Signs Temp 97.4 F 09/05/16 07:52 Pulse 63 09/05/16 07:52 Resp 16 09/05/16 07:52 BP 113/64 09/05/16 07:52 Pulse Ox 94 L 09/05/16 07:52 Weight - Most Recent: 150 lb 12.8 oz I&O - Last 24 hours: Intake & Output 09/04/16 09/05/16 09/05/16 22:59 06:59 14:59 Intake Total 2492 6890 Output Total 1200 1600 Balance 1292 5290 [id number] Results - Last 24 hrs: Microbiology 09/04/16 10:00 Stool for WBCs - Final Stool / Feces - Stool, Liquid NO WBC SEEN 09/04/16 10:00 C. difficile DNA Amplification - Final Stool / Feces - Stool, Liquid NEGATIVE CDIFF BY DNA Med Orders - Current: Current Medications Acetaminophen (Tylenol) 650 mg PO Q4H PRN PRN Reason: Pain (Mild 1-3)/fever Hydrocodone Bitart/Acetaminophen ([place] 325-5 Mg) 2 tab PO Q6H PRN PRN Reason: Pain Cyclobenzaprine HCl (Flexeril) 10 mg PO TID PRN PRN Reason: muscle relaxer Docusate Sodium (Colace) 100 mg PO BID PRN PRN Reason: Constipation Enoxaparin Sodium (Lovenox) 30 mg SUBCUT Q24H [facility] Last Admin: 09/04/16 20:13 Dose: 30 mg Fentanyl (Sublimaze) 50 mcg IVPUSH Q6H PRN PRN Reason: Pain Lactated Ringer's (Ringers, Lactated) 1,000 mls @ 125 mls/hr IV ASDIRECTED [facility] Last Admin: 09/05/16 03:38 Dose: 125 mls/hr Ketorolac Tromethamine (Toradol) 15 mg IVPUSH Q6H PRN PRN Reason: Pain Stop: 09/08/16 00:22 Last Admin: 09/03/16 00:35 Dose: 15 mg Levothyroxine Sodium (Levothyroxine) 112 mcg PO DAILY [facility] Last Admin: 09/05/16 07:39 Dose: 112 mcg Magnesium Hydroxide (Milk Of Magnesia) 30 ml PO Q12H PRN PRN Reason: Constipation Ondansetron HCl (Zofran) 4 mg IV Q4H PRN PRN Reason: Nausea/Vomiting Last Admin: 09/04/16 10:50 Dose: 4 mg Sertraline HCl (Zoloft) 25 mg PO DAILY [facility] Last Admin: 09/05/16 07:39 Dose: 25 mg Tramadol HCl (Ultram) 50 mg PO Q6H PRN PRN Reason: Pain Discontinued Medications Enoxaparin Sodium (Lovenox) 30 mg SUBCUT Q24H [facility] Last Admin: 09/03/16 01:30 Dose: 30 mg Fentanyl (Sublimaze) 50 mcg IVPUSH ONETIME ONE Stop: 09/02/16 21:57 Last Admin: 09/02/16 22:30 Dose: 50 mcg Lactated Ringer's (Ringers, Lactated) 1,000 mls @ 999 mls/hr IV .BOLUS ONE Stop: 09/02/16 22:55 Last Admin: 09/02/16 22:33 Dose: 999 mls/hr Ketorolac Tromethamine (Toradol) 30 mg IM Q6H PRN PRN Reason: Pain (moderate 4-6) Non-Formulary Medication (Hydrocodone/Acetaminophen [Hydrocodon-Acetaminophn 10- 325]) 1 tab PO Q6H PRN PRN Reason: Pain - Exam General: Reports: alert, oriented HEENT: Reports: Mucous membr. moist/pink Neck: Reports: supple Lungs: Reports: Clear to auscultation, Normal respiratory effort Cardiovascular: Reports: Regular Rate, Regular Rhythm Abdomen: Reports: bowel sounds present Extremities: Reports: no edema Skin: Reports: warm, dry Neurological: Reports: no new focal deficit *Q Meaningful Use (DIS) - VTE *Q VTE Criteria *Q: - Stroke *Q Stroke Criteria *Q: - AMI *Q AMI Criteria *Q:
== END 2016-09-05 10:13 | disposition home or self-care (01) | DRG 390 ==
LOC: CC.ED 21:44 → UNDOADMOB 23:13 → CC.ED 23:13 → CC.MS 23:13 → OBSVTOIN 09-04 09:27
PROVIDERS: ADMIT Physician Assistant Medical; ATTEND Family Medicine
DX: K56.7 Ileus, unspecified (principal); I10 Essential (primary) hypertension; R50.9 Fever, unspecified; R11.2 Nausea with vomiting, unspecified; K21.9 Gastro-esophageal reflux disease without esophagitis; E03.9 Hypothyroidism, unspecified; R19.7 Diarrhea, unspecified; E05.90 Thyrotoxicosis, unspecified without thyrotoxic crisis or storm; F17.210 Nicotine dependence, cigarettes, uncomplicated; R10.31 Right lower quadrant pain; F41.8 Other specified anxiety disorders; Z79.899 Other long term (current) drug therapy; K57.90 Diverticulosis of intestine, part unspecified, without perforation or abscess without bleeding; Z88.0 Allergy status to penicillin
CPT/HCPCS: 36415 ×2; 74020; 74177; 80048; 80053; 81001; 82150; 85025 ×2; 86140 ×2; 87040 ×2; 96361 ×3; 96372; 96374; 96375; 96376; 99220; 99285; A9270; G0378; J1650 ×2; J1885; J2405 ×3; J3010; J7120 ×5; Q9967; 87045; 87046; 87493; 89055